=== PATIENT | female | born 1975 | race Caucasian/White ===

== ENCOUNTER 2022-07-01 09:35 | Outpatient (CLI) | payer BC, SELFPAY | END 2022-07-01 09:36 | disposition home or self-care (01) | LOC: NFLDREF 07-02 07:06 | PROVIDERS: PCP Family Medicine; Referring Provider Family Medicine; Visit Provider Family Medicine | DX: I10 Essential (primary) hypertension (principal) | CPT/HCPCS: 80048 ==

== ENCOUNTER 2022-09-09 10:00 | Outpatient (RCR) | payer BC, SELFPAY | END 2022-12-26 13:36 | disposition home or self-care (01) | PROVIDERS: PCP Family Medicine; Visit Provider Family Medicine | DX: M25.511 Pain in right shoulder (principal); M54.12 Radiculopathy, cervical region; Z51.89 Encounter for other specified aftercare | CPT/HCPCS: 97110; 97140; 97161; 97535; T1013 ==

== ENCOUNTER 2023-08-14 08:30 | Outpatient (CLI) | payer BC, SELFPAY | END 2023-08-14 08:31 | disposition home or self-care (01) | LOC: NFLDREF 08-16 07:17 | PROVIDERS: PCP Family Medicine; Referring Provider Family Medicine; Visit Provider Family Medicine | DX: Z13.220 Encounter for screening for lipoid disorders (principal); Z13.228 Encounter for screening for other metabolic disorders | CPT/HCPCS: 80053; 80061 ==

== ENCOUNTER 2023-08-29 09:06 | Outpatient (CLI) | payer BC, SELFPAY ==
--- NOTE | 2023-08-29 09:15 | MR_ITS ---
xt patient [email or web address] [email or web address]# ?previous exam [email or web address] 3d# ?next exam [email or web address] 3d# ?images?unavailable?print?order exam Additional images may become available within 24 hours of the exam.?Patient Summary Record?help [email or web address]?[email or web address] 3d# ?close [email or web address]% 3d# [address] [address] Phone:?[phone] Fax:?[phone] Referring Physician Information: Jair Reed M.D. [address] [place] [address] Phone:?[phone] Fax:?[phone] Patient:?Lashanda Ko D.O.B:?1975 Sex:?Female Phone:?[phone] [facility] MRN:?[id number] Exam Date:?08/29/2023 EXAM: MRI of the RIGHT SHOULDER, without contrast CLINICAL: Right shoulder pain. Evaluate for rotator cuff tear. COMPARISONS: None available. TECHNICAL: Multiplanar multisequence MRI of the right shoulder was obtained. SEDATION: None. CONTRAST: None. FINDINGS: Rotator cuff: Supraspinatus/Infraspinatus: There is moderate tendinosis of the distal supraspinatus tendon with mild tendinosis of the distal infraspinatus tendon. Mild bursal surface fraying/partial tearing of the distal supraspinatus tendon best seen on coronal series 4 image 10 with mild partial interstitial/articular surface tearing of the distal supraspinatus tendon on coronal series 4 images 11-12. Mild thin linear partial interstitial tearing of the remainder of the supraspinatus tendon with mild thin linear partial interstitial tearing of the infraspinatus tendon. No significant fatty atrophy of the muscle bellies. Teres minor: No tendinosis, tear or atrophy. Subscapularis: Mild tendinosis and mild partial interstitial tearing of the distal tendon. No significant fatty atrophy of the muscle belly. Bursae: Subacromial-subdeltoid: Mild to moderate bursitis. Subcoracoid: No significant bursal fluid. Coracoacromial arch: Acromion morphology: Type II. No os acromiale. Acromiohumeral space: Within normal limits. Coracohumeral space: Within normal limits. Biceps tendon, long head: Moderate tendinosis of the intra-articular tendon. No significant tendon tear or displacement. Glenohumeral joint: Physiologic volume of joint fluid. Articular cartilage: No significant chondral loss. Capsule: No convincing evidence of capsular thickening or injury. Labrum: No convincing discrete labral tear identified on this nonarthrogram exam. No perilabral cyst identified. Bones: No suspicious marrow signal alteration, fracture or dislocation. Acromioclavicular joint: Moderate changes of arthrosis. No AC joint injury/widening. IMPRESSION: 1. Moderate tendinosis and mild partial tearing of the distal supraspinatus tendon with mild tendinosis/partial interstitial tearing of the infraspinatus and subscapularis tendons. No evidence of full-thickness or retracted rotator cuff tendon tear. 2. Mild to moderate subacromial/subdeltoid bursitis. 3. Moderate tendinosis of the intra-articular long head biceps tendon. 4. Moderate AC joint arthrosis. PAULY Electronically signed on 08/29/2023 1:12:00 PM by Manolo Doe D.O.
== END 2023-08-29 09:07 | disposition home or self-care (01) ==
PROVIDERS: PCP Family Medicine; Visit Provider Orthopaedic Surgery
DX: M25.511 Pain in right shoulder (principal); M75.101 Unspecified rotator cuff tear or rupture of right shoulder, not specified as traumatic; M75.51 Bursitis of right shoulder; M19.011 Primary osteoarthritis, right shoulder
CPT/HCPCS: 73221; T1013

== ENCOUNTER 2023-09-18 10:23 | Outpatient (CLI) | payer BC, SELFPAY | END 2023-09-18 10:24 | disposition home or self-care (01) | LOC: NFLDREF 10:23 | PROVIDERS: PCP Family Medicine; Visit Provider Family Medicine | DX: I10 Essential (primary) hypertension (principal) | CPT/HCPCS: 80048 ==

== ENCOUNTER 2023-10-24 06:58 | Day surgery (SDC) | payer BC, SELFPAY ==
[2023-10-24] VITALS (24 sets, daily range): BP systolic 94–122; BP diastolic 52–83; PULSE 53–70; RESP 12–16; TEMP 36.4–36.6; O2SAT 91–100; BMI 44.6
[2023-10-24] MEDS: LACTATED RINGERS 1000 ML 1,000 ML 100 ML IV ×2 (07:40→10:55)
[2023-10-24] MEDS: CELECOXIB 200 MG CAPSULE PO (07:50)
[2023-10-24] MEDS: ACETAMINOPHEN 500 MG TABLET 1000 MG PO (07:50)
[2023-10-24] MEDS: OXYCODONE (CR) 10 MG TAB.ER.12H PO (07:50)
--- NOTE | 2023-10-24 07:50 | SUR.PREOP ---
TIME?OUT:?0750 PT/RN/MDA?VERIFICATION?OF?SURGICAL?SITE-RIGHT SHOULDER,?PROCEDURE,?BLOCK, AND?CONSENT OBTAINED?PRIOR?TO?INVASIVE?PROCEDURE.
[2023-10-24] MEDS: MIDAZOLAM HCL 1 MG/ML inj IVP (07:53)
[2023-10-24] MEDS: fentaNYL 100 MCG/2 ML inj IVP (07:53)
[2023-10-24] MEDS: CEFAZOLIN 2 GM INJ IVP (08:41)
--- NOTE | 2023-10-24 08:48 | W.PM.NB ---
Nerve Block Nerve Block Time Seen by Provider: 07:56 Date Seen: 10/24/23 Type of block requested by surgeon for post-operative analgesia: supraclavicular Side: right Time out performed: Yes Verification of patient name: Yes Verification of date of : Yes Site marking: site marked Name of person performing procedure: Franklyn Continuous monitoring Was continuous monitoring of O2 sat, B/P, first officer and flight instructor, recorded every 15 minutes?: Yes Procedure Checklist: sterile prep, needles and gloves Ultrasound guided. Images saved: Yes Medications given in 5ml increments after negative aspiration: Ropivicaine %: 0.5 mL: 20 Needle gauge: 22 Decadron (mg): 10 Precedex (mcg): 25 Patient tolerated procedure well: Yes Block Charges Block Charge (with Pro Fee): Brachial Plexus Use of Ultrasound Machine for Block: Yes- US Guidance/pain block
--- NOTE | 2023-10-24 08:48 | W.ANESCHARGE ---
Anesthesia Charges Start Date/Time Anesthesia Start Date: 10/24/23 Anesthesia Start Time: 08:25 Stop Date/Time Anesthesia Stop Date: 10/24/23 Anesthesia Stop Time: 09:57
[2023-10-24] MEDS: EPINEPHrine 1 MG in SODIUM CHLORIDE IRRIG SOLUTION 3,000 ML 3001 MG IRRIGATION ×3 (09:05)
--- NOTE | 2023-10-24 09:47 | PM.ORPRC ---
Procedure Note Date of procedure: 10/24/23 Procedure: PREOPERATIVE DIAGNOSIS: Right shoulder impingement syndrome, labral tearing, AC joint arthrosis POSTOPERATIVE DIAGNOSIS: Right shoulder impingement syndrome, labral tearing, AC joint arthrosis for NAME OF OPERATION: Right shoulder arthroscopic subacromial decompression, limited glenohumeral joint debridement, distal clavicle excision SURGEON: Jair Reed MD TRAFFIC MAINTENANCE OFFICER: Roxi Singleton PA-C ANESTHESIA: Supraclavicular block plus general endotracheal ESTIMATED BLOOD LOSS: 5 mL COMPLICATIONS: None SPECIMENS: None DRAINS: None PREOPERATIVE ANTIBIOTICS: Ancef 2 grams INDICATIONS: The patient is a 47-year-old with a history of right shoulder pain secondary to the above diagnoses. Despite appropriate non operative management, they continue to have symptoms. Operative intervention was recommended. The risks, benefits and expected outcomes were discussed in detail. These included but were not limited to: Infection, bleeding, injury to blood vessel or nerve, venous thromboembolism. All questions were answered to their satisfaction. A modifier 22 should be added to this case. The patient's weight of 104 kg with a BMI of 45 made finding anatomic landmarks and manipulating the arthroscope and the instruments in the shoulder difficult. This added time to complete the case. PROCEDURE: A supraclavicular block was placed by Anesthesia. General anesthesia was administered. The patient was placed in the high beach chair position. The right shoulder was prepped and draped in the usual sterile fashion. The glenohumeral joint was infiltrated with 20 mL of normal saline with epinephrine. The posterior portal was established, the arthroscope was introduced. The anterior portal was established, Diagnostic arthroscopy was performed with findings as follows: The biceps and biceps anchor are intact. The anterior, posterior and superior labrum show age-appropriate degenerative tearing. Articular surfaces on the humeral head and glenoid are normal. There are no loose bodies. Insertion of the anterior aspect of the supraspinatus has age-appropriate degenerative fraying. The labrum was circumferentially debrided with the shaver. Likewise, the undersurface of the insertion of the anterior aspect of the supraspinatus was debrided with the shaver. This does not result in high-grade partial-thickness or full-thickness tearing. The arthroscope was placed in the subacromial space, the lateral portal was established. The Arthrex Clark was used to dissect the acromion free. The CA ligament was recessed off the anterior acromion, the AC joint was exposed. The acromioplasty was performed with the bur in the posterior portal. The bur was then placed in the lateral portal and the lateral and anterior aspect of the acromion were resected. The undersurface of the distal clavicle was resected through the lateral portal. Finally, the bur was placed in the anterior portal and the remainder of the distal clavicle was resected for a total of 10 mm. The subacromial/subdeltoid bursa was aggressively debrided. The bursal surface of the rotator cuff is intact, without high-grade partial-thickness or full-thickness tearing. Arthroscopic instruments were removed. Portals were closed with a 3-0 nylon. A dry dressing and sling were applied. Sponge and needle counts were correct x2. The patient tolerated the procedure well. There were no apparent complications. They were carefully transferred to the hospital bed and taken to the postanesthesia care unit in satisfactory condition. PLAN: The patient will be discharged to home. Active range of motion of the shoulder will be allowed as tolerates. They can work on active range of motion of the elbow, wrist and fingers. They will follow up in the office next week for a wound check and an AP and transscapular Y-view of the shoulder prior to being seen.
--- NOTE | 2023-10-24 09:58 | W.ANESCHARGE ---
Anesthesia Charges Start Date/Time Anesthesia Start Date: 10/24/23 Anesthesia Start Time: 08:25 Stop Date/Time Anesthesia Stop Date: 10/24/23 Anesthesia Stop Time: 09:57
== END 2023-10-24 13:09 | disposition home or self-care (01) ==
LOC: OR 06:59
PROVIDERS: PCP Family Medicine; Visit Provider Orthopaedic Surgery
PROC: (CPT 23412; principal; 2023-10-24 08:15)
DX: M75.41 Impingement syndrome of right shoulder (principal); M19.011 Primary osteoarthritis, right shoulder; S43.431A Superior glenoid labrum lesion of right shoulder, initial encounter; G89.18 Other acute postprocedural pain; Z68.42 Body mass index [BMI] 45.0-49.9, adult; I10 Essential (primary) hypertension; E66.3 Overweight
CPT/HCPCS: 29826; 29824; 29822; 01630; 64415; 76942; T1013; A9270; J0171; J0330; J0690; J1100; J1170; J2250; J2371; J2405; J2704; J2710; J2795; J3010; J7120

== ENCOUNTER 2023-11-10 09:05 | Outpatient (CLI) | payer BC, SELFPAY ==
--- NOTE | 2023-11-10 09:15 | CRLHL7_ITS ---
For Patients: As a result of the Century Cures Act, medical imaging exams and procedure reports are released immediately into your electronic medical record. You may view this report before your referring provider. If you have questions, please contact your health care provider. BILATERAL SCREENING MAMMOGRAM WITH COMPUTER-AIDED DETECTION AND TOMOSYNTHESIS TECHNIQUE: CC and MLO views were obtained. These mammographic images have been obtained using full-field digital technique. These mammographic images were interpreted with the benefit of computer-aided detection. Breast Tomosynthesis was used in this interpretation. COMPARISON FILM: 09/23/22, 08/14/20, 06/12/18. FINDINGS: There are scattered areas of fibroglandular density IMPRESSION: There is no radiographic evidence for malignancy. ASSESSMENT: BI-RADS Category 1: Negative RECOMMENDATION: Routine screening mammogram in 1 year. A lay language report of this examination will be provided to the patient. Tod Mo M.D. Diagnostic Radiologist [email or web address] YENNIFER/Dictated by: Tod Mo MD @ 11/10/2023 10:15:00 AM (Electronically Signed)
== END 2023-11-10 09:06 | disposition home or self-care (01) ==
PROVIDERS: PCP Family Medicine; Visit Provider Family Medicine
DX: Z12.31 Encounter for screening mammogram for malignant neoplasm of breast (principal)
CPT/HCPCS: 77063; 77067; T1013

== ENCOUNTER 2023-12-07 14:00 | Outpatient (RCR) | payer BC, SELFPAY | END 2023-12-07 14:33 | disposition home or self-care (01) | PROVIDERS: PCP Family Medicine; Visit Provider Orthopaedic Surgery | DX: Z98.890 Other specified postprocedural states (principal); Z51.89 Encounter for other specified aftercare | CPT/HCPCS: 97110; 97140; 97161; T1013 ==

== ENCOUNTER 2024-05-06 14:14 | Emergency (ER) | payer BC, SELFPAY ==
--- OUTSIDE RECORDS SUMMARY | 2024-05-06 14:18 | XMS_ITS | Continuity of Care Document ---
Author Name [facility] Address Unknown Organization Unknown Address Unknown Procedures FILTER APPLIED:Only known Procedures with Onset Date within the last 5 years Procedure Date Procedure Provider Additional Inform ation Status MRI JOINT UPR EXTREM W/O DYE (77798) Completed COMPREHEN METABOLIC PANEL (55806) Completed LIPID PANEL (56147) Comp leted Encounters FILTER APPLIED:Only known Encounters with Admission Date within the last 5 years Encounter Location Admission Discharge Billing Code [facility] Outpatient [facility] Outpatient [facility] Outpatient [facility] julio Reed
[2024-05-06 14:22] VITALS: BP 121/81; PULSE 71; RESP 18; TEMP 36.6; O2SAT 98; BMI 32.3
[2024-05-06 15:37] LABS: PCR FLU A Negative PCR FLU A (Negative); PCR FLU B Negative PCR FLU B (Negative); PCR RSV Negative PCR RSV (Negative); SARS PCR* Negative SARS-CoV-2 (Negative)
--- NOTE | 2024-05-06 16:28 | ED_ITS ---
HPI - General Adult General Date Seen: 05/06/24 Chief complaint: Fever Stated complaint: cough, fever, chills Time Seen by Provider: 05/06/24 15:35 History of Present Illness HPI narrative: Patient is a 48-year-old woman, generally healthy, presents with flu symptoms for several days. Her entire family is sick and they are all here to be seen together. Cough, aches, headache, fever. No significant shortness of breath or GI symptoms. Related Data Previous Rx's ?Medication ?Instructions ?Recorded atenolol 50 mg tablet 50 mg PO QDAY #90 tabs 08/16/23 hydrochlorothiazide 25 mg tablet 25 mg PO QDAY #90 tabs 08/16/23 losartan 50 mg tablet 50 mg PO QDAY #90 tabs 09/18/23 Allergies Allergy/AdvReac Type Severity Reaction Status Date / Time No Known Allergies Allergy Verified 12/04/23 09:43 [facility] Medical History HTN (hypertension) ?I10 - Essential (primary) hypertension (ICD-10) Gastroesophageal reflux disease ?K21.9 - Gastro-esophageal reflux disease without esophagitis (ICD-10) Generalized anxiety disorder ?F41.1 - Generalized anxiety disorder (ICD-10) Anemia ?D64.9 - Anemia, unspecified (ICD-10) Right shoulder pain ?M25.511 - Pain in right shoulder (ICD-10) Cervical radiculopathy ?M54.12 - Radiculopathy, cervical region (ICD-10) Biceps tendinosis of right shoulder ?M67.813 - Other specified disorders of tendon, right shoulder (ICD-10) Arthritis of right acromioclavicular joint ?M19.011 - Primary osteoarthritis, right shoulder (ICD-10) Surgical History History of arthroscopy of right shoulder (10/24/23) ?Z98.890 - Other specified postprocedural states (ICD-10) Status post delivery ?Z98.891 - History of uterine scar from previous surgery (ICD-10) History of tonsillectomy ?Z90.89 - Acquired absence of other organs (ICD-10) History of laparoscopic cholecystectomy (2007) ?Z90.49 - Acquired absence of other specified parts of digestive tract (ICD- 10) History of hernia repair (2015) ?Z98.890 - Other specified postprocedural states (ICD-10) ?Z87.19 - Personal history of other diseases of the digestive system (ICD-10) Family History Mother Type 2 diabetes mellitus Brother Type 2 diabetes mellitus Social History (Updated 08/16/23 @ 13:56 by Jamzyn Syed~CLINICAL STAFF PHARMACIST, CLINICAL STAFF PHARMACIST) What is your current living situation?: I presently have a place to live Problems where you live: no known problems In the past 12 months, utilities in danger of being shut off: no In past 12 months, lack of transportation kept you from medical appts, meetings, work, or getting things needed for daily living: no In the past 12 mos, have been you worried that your food would run out before you had money to buy more?: never true In the past 12 mos, the food you bought just didn't last and you didn't have money to buy more?: never true Smoking Status: Never smoker Do you use any of these nicotine containing products: None How often do you have a drink containing alcohol: never How often do you have six or more drinks on one occasion: Never AUDIT-C Alcohol total score: 0 Non-prescribed substance use: denies use Caffeine: Yes (daily coffee) How often does anyone, including family, friends and others, physically hurt you : never How often does anyone, including family, friends and others, insult or talk down to you: never How often does anyone, including family, friends and others, threaten you with harm: never How often does anyone, including family, friends and others, scream or curse at you: never Are you using contraception or practicing any form of control: No (hx tubal ligation) Exam Narrative: Exam Narrative: Vital signs reviewed In general, alert, nontoxic woman. Breathing easily. Head: Normocephalic, atraumatic. Eyes: Sclera clear. Pupils equal and reactive. ENT: Mucous membranes moist. Neck: Supple without adenopathy. Heart: Regular rate and rhythm without murmur. Lungs: Clear. No increased work of breathing, crackles or wheezes. Neurologic: Alert, conversant. Speech fluent, face symmetric. Moves all extremities equally. Skin: Warm, dry well perfused. Affect: Normal. Const: Vital Signs, click to edit/add: Vital Signs - 24 hr 05/06/24 14:22 Temperature 97.8 F Pulse Rate [Pulse Oximeter] 71 Respiratory Rate 18 Blood Pressure [Ri ght Upper Arm] 121/81 Pulse Oximetry 98 Oxygen Delivery Me thod Room Air Course Course ED Course: Natural history of influenza reviewed. Risks and benefits of Tamiflu reviewed, they will defer. Ibuprofen and/or Tylenol as needed for aches, headache, fever. Return for worsening symptoms. See primary care for ongoing concerns. Vital Signs Vital signs: Initial Vital Signs Temperature 97.8 F 05/06/24 14:22 Temperature Source Temporal Artery Scan 05/06/24 14:22 Pulse Rate 71 05/06/24 14:22 Respiratory Rate 18 05/06/24 14:22 Blood Pressure 121/81 05/06/24 14:22 Blood Pressure Mean 94 05/06/24 14:22 Blood Pressure Position Sitting 05/06/24 14:22 Pulse Oximetry 98 05/06/24 14:22 Oxygen Delivery Method Room Air 05/06/24 14:22 Vital Signs Temperature 97.8 F 05/06/24 14:22 Pulse Rate 71 05/06/24 14:22 Respiratory Rate 18 05/06/24 14:22 Blood Pressure 121/81 05/06/24 14:22 Pulse Oximetry 98 05/06/24 14:22 Oxygen Delivery Method Room Air 05/06/24 14:22 Temperature 97.8 F 05/06/24 14:22 Pulse Rate 71 05/06/24 14:22 Respiratory Rate 18 05/06/24 14:22 Blood Pressure 121/81 05/06/24 14:22 Pulse Oximetry 98 05/06/24 14:22 Oxygen Delivery Method Room Air 05/06/24 14:22 Medical Decision Making Lab Data Labs: Lab Results 05/06/24 Range/Units 14:25 SARS-CoV-2 (PCR) Negative SARS-CoV-2 (Negative) Influenza Type A (PCR) Negative PCR FLU A (Negative) Influenza Type B (PCR) Negative PCR FLU B (Negative) RSV (PCR) Negative PCR RSV (Negative) Discharge Plan Discharge Clinical Impression: Influenza Patient Disposition: Home, Self-Care Additional Instructions: You can use ibuprofen and/or Tylenol as needed for fevers, headache, body aches etcetera. Cough may persist for a couple of weeks. For worsening respiratory symptoms, return to the ER at any time. Otherwise see primary care for other concerns. Prescriptions: No Action atenolol 50 mg tablet 50 mg PO QDAY Qty: 90 3RF hydrochlorothiazide 25 mg tablet 25 mg PO QDAY Qty: 90 3RF losartan 50 mg tablet 50 mg PO QDAY Qty: 90 3RF Follow Up/Referrals: Cameron Wolfe MD [Primary Care Provider] - Stand Alone Forms: [employer] Info Instructions
== END 2024-05-06 17:05 | disposition home or self-care (01) ==
LOC: ED 17:24
PROVIDERS: Emergency Provider Emergency Medicine; PCP Family Medicine
DX: J10.1 Influenza due to other identified influenza virus with other respiratory manifestations (principal)
CPT/HCPCS: 87631; 99282; 99283

== ENCOUNTER 2024-09-05 08:25 | Outpatient (CLI) | payer BC, SELFPAY | END 2024-09-05 08:26 | disposition home or self-care (01) | PROVIDERS: PCP Family Medicine; Referring Provider Family Medicine; Visit Provider Family Medicine | DX: E78.5 Hyperlipidemia, unspecified (principal) | CPT/HCPCS: 80053; 80061 ==

== ENCOUNTER 2025-01-20 12:59 | Outpatient (CLI) | payer BC, SELFPAY ==
--- NOTE | 2025-01-20 13:20 | CRLHL7_ITS ---
For Patients: As a result of the Century Cures Act, medical imaging exams and procedure reports are released immediately into your electronic medical record. You may view this report before your referring provider. If you have questions, please contact your health care provider. INDICATION: BILATERAL SCREENING MAMMOGRAM, ASYMPTOMATIC 49 Y/O FEMALE COMPARISON: 11/10/2023, 09/23/2022, 08/14/2020 TECHNIQUE: Digital mammogram in CC and MLO projections including computer-aided detection (CAD) and tomosynthesis. BREAST COMPOSITION: The breasts are almost entirely fatty. FINDINGS: No suspicious findings. ASSESSMENT: BI-RADS 1 Negative RECOMMENDATION: Annual screening mammogram. A lay language report of this examination will be provided to the patient. Dictated by: Tod Mo MD @ 01/21/2025 09:49:20 (Electronically Signed)
== END 2025-01-20 13:00 | disposition home or self-care (01) ==
LOC: MAMMO 12:59
PROVIDERS: PCP Family Medicine; Visit Provider Family Medicine
DX: Z12.31 Encounter for screening mammogram for malignant neoplasm of breast (principal)
CPT/HCPCS: 77063; 77067; T1013